=== PATIENT | female | born 1995 | race Caucasian/White ===

== ENCOUNTER 2020-09-23 22:39 | Emergency (ER) | payer BC, OTHER ==
[2020-09-23] MEDS ORDERED: Ketorolac 30 MG/ML SDV IM ONE (23:40)
--- NOTE | 2020-09-24 00:50 | EDM.PDOC ---
ED HPI GENERAL MEDICAL PROBLEM - General Chief Complaint: Abdominal Pain Stated Complaint: ABDOMINAL PAIN Time Seen by Provider: 09/23/20 23:00 Source of Information: Reports: Patient History Limitations: Reports: No Limitations - History of Present Illness INITIAL COMMENTS - FREE TEXT/NARRATIVE: c/o abd cramping ate a hamburger at 6:30p, driving home with , had cramping pain across upper abd at 8p pain much better after Toradol 60 mg IM has had similar pain in past, usually monthly, had same pain last night and was up all night, AA did not help, not able to fall asleep til 6a, then slept to 4p missed worked today as she was too tired, 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 altho did show a moderate stool burden in R colon and transverse colon on CT labs and u/a otherwise neg except for CRP 1.8 for unclear reason which appears unrelated to current sxs pt not used stool softners in past which may be a consideration if she continues to have difficulties does have N on occasion, no V ED ROS GENERAL - Review of Systems Review Of Systems: See Below Constitutional: Reports: No Symptoms HEENT: Reports: No Symptoms Respiratory: Reports: No Symptoms Cardiovascular: Reports: No Symptoms Endocrine: Reports: No Symptoms GI/Abdominal: Reports: No Symptoms, Abdominal Pain, Nausea : Reports: No Symptoms Musculoskeletal: Reports: No Symptoms Skin: Reports: No Symptoms Neurological: Reports: No Symptoms Psychiatric: Reports: No Symptoms Hematologic/Lymphatic: Reports: No Symptoms Immunologic: Reports: No Symptoms ED EXAM, GI/ABD - Physical Exam Exam: See Below Exam Limited By: No Limitations General Appearance: Alert, WD/WN, Mild Distress Nose: Normal Inspection Throat/Mouth: Normal Inspection Head: Atraumatic, Normocephalic Neck: Normal Inspection, Supple. No: Lymphadenopathy (R), Lymphadenopathy (L) Respiratory/Chest: No Respiratory Distress, Lungs Clear, Normal Breath Sounds, Chest Non-Tender Cardiovascular: Regular Rate, Rhythm, No Edema, No Murmur GI/Abdominal Exam: Other (mild tender across upper abd, no inc'd tender at epigastrium or Riddle's point, good BS, no guard/rebound) Back Exam: Normal Inspection, Full Range of Motion, NT Extremities: Normal Inspection, Normal Range of Motion, Non-Tender, No Pedal Marlon ma Neurological: Alert, Oriented, CN II-XII Intact, Normal Cognition, No Motor/Sensory Deficits Psychiatric: Normal Affect, Normal Mood Skin Exam: Warm, Dry, Intact, Normal Color, No Rash Lymphatic: No Adenopathy Course - Orders/Labs/Meds Orders: Active Orders 24 hr Category Date Time Status Abdomen 2V AP Flat Upright [CR] Stat Exams 09/23/20 23:23 Ordered Labs: Laboratory Tests 09/23/20 09/23/20 09/23/20 Range/Units 23:40 23:40 23:40 WBC 6.9 (3.0-10.3) x10-3/uL RBC 4.57 (3.60-5.20) x10(6)uL Hgb 14.1 (11.4-15.5) g/dL Hct 41.1 (34.2-48.2) % MCV 89.9 (76.7-100.5) fL MCH 30.8 (23.9-33.9) pg MCHC 34.3 (31.9-34.8) g/dL RDW 12.5 (12.3-16.5) % Plt Count 346 (151-488) x10(3)uL MPV 7.2 (7.1-12.4) fL Neut % (Auto) 56.4 (30.8-76.2) % Lymph % (Auto) 31.7 (18.4-52.1) % [place] % (Auto) 7.6 (4.4-15.7) % Eos % (Auto) 3.8 (0.6-8.1) % Baso % (Auto) 0.5 (0.2-1.5) % Neut # (Auto) 3.9 (1.5-6.3) x10-3/uL Lymph # (Auto) 2.2 (1.0-4.4) x10-3/uL [place] # (Auto) 0.5 (0.3-1.0) x10-3/uL Eos # (Auto) 0.3 (0.0-0.8) x10-3/uL Baso # (Auto) 0.0 (0.0-0.1) x10-3/uL Sodium 141 (135-145) mmol/L Potassium 4.3 (3.5-5.3) mmol/L Chloride 106 (100-110) mmol/L Carbon Dioxide 27 (21-32) mmol/L BUN 14 (7-18) mg/dL Creatinine 1.0 (0.55-1.02) mg/dL Est Cr Clr Drug Dosing 86.00 mL/min Estimated GFR (MDRD) > 60 (>60) BUN/Creatinine Ratio 14.0 (9-20) Glucose 103 (80-116) mg/dL Calcium 8.6 (8.6-10.2) mg/dL Total Bilirubin 0.2 (0.1-1.3) mg/dL AST 10 (5-25) IU/L ALT 25 (12-36) U/L Alkaline Phosphatase 79 (56-112) IU/L C-Reactive Protein 1.8 H (0.5-0.9) mg/dL Total Protein 7.1 (6.0-8.0) g/dL Albumin 3.5 (3.5-5.2) g/dL Globulin 3.6 g/dL Albumin/Globulin Ratio 1.0 Lipase 104 (73-393) U/L Urine Color (YELLOW) Urine Appearance (CLEAR) Urine pH (5.0-6.5) Ur Specific Center (1.010-1.025) Urine Protein (NEGATIVE) mg/dL Urine Glucose (UA) (NORMAL) mg/dL Urine Ketones (NEGATIVE) mg/dL Urine Occult Blood (NEGATIVE) Urine Nitrite (NEGATIVE) Urine Bilirubin (NEGATIVE) Urine Urobilinogen (NEGATIVE) mg/dL Ur Leukocyte Esterase (NEGATIVE) Urine RBC (0-5) Urine WBC (0-5) Ur Squamous Epith Cells (NS,R,O) Urine Bacteria (NS) Urine HCG, Qual (NEGATIVE) 09/23/20 09/23/20 Range/Units 23:45 23:45 WBC (3.0-10.3) x10-3/uL RBC (3.60-5.20) x10(6)uL Hgb (11.4-15.5) g/dL Hct (34.2-48.2) % MCV (76.7-100.5) fL MCH (23.9-33.9) pg MCHC (31.9-34.8) g/dL RDW (12.3-16.5) % Plt Count (151-488) x10(3)uL MPV (7.1-12.4) fL Neut % (Auto) (30.8-76.2) % Lymph % (Auto) (18.4-52.1) % [place] % (Auto) (4.4-15.7) % Eos % (Auto) (0.6-8.1) % Baso % (Auto) (0.2-1.5) % Neut # (Auto) (1.5-6.3) x10-3/uL Lymph # (Auto) (1.0-4.4) x10-3/uL [place] # (Auto) (0.3-1.0) x10-3/uL Eos # (Auto) (0.0-0.8) x10-3/uL Baso # (Auto) (0.0-0.1) x10-3/uL Sodium (135-145) mmol/L Potassium (3.5-5.3) mmol/L Chloride (100-110) mmol/L Carbon Dioxide (21-32) mmol/L BUN (7-18) mg/dL Creatinine (0.55-1.02) mg/dL Est Cr Clr Drug Dosing mL/min Estimated GFR (MDRD) (>60) BUN/Creatinine Ratio (9-20) Glucose (80-116) mg/dL Calcium (8.6-10.2) mg/dL Total Bilirubin (0.1-1.3) mg/dL AST (5-25) IU/L ALT (12-36) U/L Alkaline Phosphatase (56-112) IU/L C-Reactive Protein (0.5-0.9) mg/dL Total Protein (6.0-8.0) g/dL Albumin (3.5-5.2) g/dL Globulin g/dL Albumin/Globulin Ratio Lipase (73-393) U/L Urine Color Yellow (YELLOW) Urine Appearance Clear (CLEAR) Urine pH 5.0 (5.0-6.5) Ur Specific Center 1.025 (1.010-1.025) Urine Protein Negative (NEGATIVE) mg/dL Urine Glucose (UA) Normal (NORMAL) mg/dL Urine Ketones Negative (NEGATIVE) mg/dL Urine Occult Blood Moderate H (NEGATIVE) Urine Nitrite Negative (NEGATIVE) Urine Bilirubin Negative (NEGATIVE) Urine Urobilinogen Normal (NEGATIVE) mg/dL Ur Leukocyte Esterase Negative (NEGATIVE) Urine RBC 0-5 (0-5) Urine WBC 0-5 (0-5) Ur Squamous Epith Cells Few H (NS,R,O) Urine Bacteria Few H (NS) Urine HCG, Qual Negative (NEGATIVE) Meds: Medications Discontinued Medications Generic Name Dose Route Start Last Admin Trade Name Skip PRN Reason Stop Dose Admin Ketorolac Tromethamine 60 mg 09/23/20 23:40 09/23/20 23:58 Ketorolac 30 Mg/Ml Sdv IM 09/23/20 23:41 60 mg ONETIME ONE Administration - Re-Assessments/Exams Free Text/Narrative Re-Assessment/Exam: 09/24/20 00:57 pt acknowledged understanding of instructions Departure - Departure Time of Disposition: 00:50 Disposition: Home, Self-Care 01 Condition: Good Clinical Impression: Colon spasm, Constipation - Discharge Information *PRESCRIPTION DRUG MONITORING PROGRAM REVIEWED*: Not Applicable *COPY OF PRESCRIPTION DRUG MONITORING REPORT IN PATIENT CARLOS: Not Applicable Instructions: Constipation, Adult, High-Fiber Diet Referrals: Je Hooks PA [Primary Care Provider] - Additional Instructions: Drink a 10-ounce bottle of magnesium citrate in the morning. Drink a 2nd bottle 6 hours later. For pain and cramping, take ibuprofen 200 mg 3 tabs and/or acetaminophen 500 mg 2 tabs every 6 hours as needed. Use moist heat in tub or shower for 10 minutes every 1-2 hours as needed. If you have cramping in the future, milk of magnesium 30 ml (2 tablespoons) every 12 hours as needed can be a good option as well. Maintain regular eating habits. Eat a high fiber diet (fruits, vegetables, whole grains). See your doctor in one week for additional recommendations. - My Orders Last 24 Hours: My Active Orders 09/23/20 23:23 Abdomen 2V AP Flat Upright [CR] Stat - Assessment/Plan Last 24 Hours: My Active Orders 09/23/20 23:23 Abdomen 2V AP Flat Upright [CR] Stat
--- NOTE | 2020-09-26 11:16 | CR ---
ABDOMEN TWO VIEW [id number] INDICATION: Pain across transverse colon. Complains of constipation. Four images of the abdomen were obtained in supine and upright projections and revealed a nonspecific pattern of gas and feces without evidence of free air, obstruction, or excessive amount of stool. There is a mild dextroconcave scoliosis of the upper lumbar spine. No organomegaly, mass lesions, or definite pathologic calcifications were identified. However, there is a possible calcific density in the right upper quadrant adjacent to the large bowel which could represent a gallstone and should be correlated clinically. No organomegaly, mass lesions, or other pathologic calcifications were identified. IMPRESSION: 1. Small calcific density overlying the area of the gallbladder/right kidney may represent a gallstone or less likely a renal calculus. CT would be confirmatory as felt to be clinically necessary. 2. On upright views there is a minimal dextroconcave scoliosis of the upper lumbar spine. 3. No evidence of excessive stool was identified. MTDD
== END 2020-09-24 01:00 | disposition home or self-care (01) ==
LOC: FB.ED 22:39
DX: K58.1 Irritable bowel syndrome with constipation (principal)
CPT/HCPCS: 36415; 74019; 80053; 81001; 81025; 83690; 85025; 86140; 96372; 99284; J1885

== ENCOUNTER 2021-08-27 21:17 | Emergency (ER) | payer OTHER, BC ==
[~2021-08-27 21:17] MED LIST: Ondansetron 4 MG Tab.DIS PO ONE
[2021-08-27] MEDS ORDERED: Prochlorperazine 10 MG/2 ML SDV IVPUSH ONE (22:19)
[2021-08-27] MEDS ORDERED: Lactated Ringers 1,000 ML IV ONE (22:20)
[2021-08-27] MEDS ORDERED: Alum Hydroxide/Mag Hydroxide 15 ML, Lidocaine 2% 15 ML PO ONE ×2 (22:39)
[2021-08-27] MEDS ORDERED: Acetaminophen 500 MG Tab PO ONE (23:51)
[2021-08-27] MEDS ORDERED: Famotidine 20 MG Tab PO ONE (23:52)
== END 2021-08-28 00:25 | disposition home or self-care (01) ==
LOC: FB.ED 21:17
DX: K29.00 Acute gastritis without bleeding (principal); I10 Essential (primary) hypertension; Z88.8 Allergy status to other drugs, medicaments and biological substances
CPT/HCPCS: 36410; 36415; 80053; 83690; 85025; 96374; 99282; 99284-25; A9270-GY; J0780; J7120; Q0162

== ENCOUNTER 2021-09-20 09:00 | Day surgery (SDC) | payer BC, OTHER ==
[2021-09-20] MEDS ORDERED: diphenhydrAMINE 50 MG/ML SDV IVPUSH ONE (09:01)
[2021-09-20] MEDS ORDERED: Lidocaine 1% PF 2 ML SDV INJECT ONE (09:01)
[2021-09-20] MEDS ORDERED: Lactated Ringers 1,000 ML IV ONE (09:01)
[2021-09-20] MEDS ORDERED: Ondansetron 4 MG/2 ML SDV IVPUSH ONE (09:01)
[2021-09-20] MEDS ORDERED: fentaNYL 100 MCG/2 ML SDV IV ONE (09:01)
[2021-09-20] MEDS ORDERED: Glycopyrrolate 0.2 MG/ML 5 ML MDV IV ONE (09:01)
[2021-09-20] MEDS ORDERED: Neostigmine Methylsulfate 10 MG/10 ML MDV IVPUSH ONE (09:01)
[2021-09-20] MEDS ORDERED: HYDROmorphone 2 MG/ML SDV IV ONE (09:01)
[2021-09-20] MEDS ORDERED: Midazolam 1 MG/ML 2 ML SDV IV ONE (09:01)
[2021-09-20] MEDS ORDERED: Dexamethasone 4 MG/ML 5 ML MDV IVPUSH ONE (09:01)
[2021-09-20] MEDS ORDERED: Propofol 200 MG/20 ML SDV IV ONE (09:01)
[2021-09-20] MEDS ORDERED: Rocuronium 100 MG/10 ML MDV IV ONE (09:01)
[2021-09-20] MEDS ORDERED: Lactated Ringers 1,000 ML IV SCH (09:15)
[2021-09-20] MEDS ORDERED: Sodium Chloride 0.9% 10 ML Syringe FLUSH PRN (09:15)
[2021-09-20] MEDS ORDERED: Bupivacaine 0.25% 30 ML SDV INJECT ONE (11:52)
== END 2021-09-20 14:19 | disposition home or self-care (01) ==
LOC: FB.SDS 09:00
PROVIDERS: ATTEND Surgery
DX: K80.10 Calculus of gallbladder with chronic cholecystitis without obstruction (principal); F41.9 Anxiety disorder, unspecified; E66.01 Morbid (severe) obesity due to excess calories; I10 Essential (primary) hypertension; Z01.812 Encounter for preprocedural laboratory examination; Z20.822 Contact with and (suspected) exposure to COVID-19; Z68.35 Body mass index [BMI] 35.0-35.9, adult
CPT/HCPCS: 00790-QZ; 81025; 88304; 94150; J0131; J1100; J1170; J1200; J2250; J2405; J2704; J2710; J3010; J3490; J7120; U0002

== ENCOUNTER 2022-04-02 13:34 | Emergency (ER) | payer OTHER ==
[2022-04-02 15:28] LABS: ESTIMATED GFR 126 mL/min (>60)
== END 2022-04-02 15:55 | disposition home or self-care (01) ==
LOC: FB.ED 13:34
DX: R10.31 Right lower quadrant pain (principal); I10 Essential (primary) hypertension; E66.9 Obesity, unspecified; Z68.36 Body mass index [BMI] 36.0-36.9, adult; Z88.8 Allergy status to other drugs, medicaments and biological substances; Z88.2 Allergy status to sulfonamides; Z79.899 Other long term (current) drug therapy
CPT/HCPCS: 36415; 80048; 81001; 83605; 85025; 86140; 99284